=== PATIENT | female | born 1990 | race Caucasian/White ===

== ENCOUNTER 2016-08-21 12:03 | Emergency (ER) | payer OTHER ==
--- NOTE | 2016-08-21 14:38 | ED CLINICAL REPORT ---
Clinical Report - Physicians/Mid Levels [facility] [address] [place] [address] 08/21/2016 12:04 Patient: NITA PRADO Time Seen: 1239. Arrived- By private vehicle. Historian- patient. HISTORY OF PRESENT ILLNESS Chief Complaint: PELVIC PAIN. At its maximum, severity described as severe. When seen in the E.D., severity described as severe. It is described as sharp and cramping. No radiation. It is described as located in the pelvic area. This started today and is still present and worsening. It was abrupt in onset and has been constant but is not gone now. The patient has had nausea. No loss of appetite, vomiting or diarrhea. The patient has an additional complaint of abdominal pain. No recent travel. Similar symptoms previously: (a few times). Recent medical care: Not recently seen/assessed. REVIEW OF SYSTEMS No constipation, black stools, hematemesis, bloody stools or fever. All systems otherwise negative, except as recorded above. PAST HISTORY See nurses notes. Medications: Nitro-Dur Transdermal. Nitrofurantoin Oral 100, 12 hrs. [place] Oral (Tablet 5-325 mg) 1 tablet, as needed. Propranolol HCl Oral. Rizatriptan Benzoate Oral. Allergies: No Known Drug Allergy. SOCIAL HISTORY Never smoker. No alcohol use or drug use. No recent travel. Is a local resident. ADDITIONAL NOTES The nursing notes have been reviewed. PHYSICAL EXAM Vital Signs: 08/21/2016 12:09 BP: 134/89. HR: 94. RR: 15. O2 saturation: 100%. Temp: 98.3 F. Pain level now: 8/10. Oxygen saturation normal. Appearance: Alert. Oriented X3. No acute distress. Eyes: Pupils equal, round and reactive to light. Eyes normal inspection. ENT: Ears normal. Nose normal. Pharynx normal. Neck: Normal inspection. Neck supple. CVS: Normal heart rate and rhythm. Heart sounds normal. Pulses normal. Respiratory: No respiratory distress. Breath sounds normal. Chest nontender. No rales, rhonchi or wheezes. Abdomen: Soft and nontender. Bowel sounds normal. Back: Normal inspection. Skin: Skin warm and dry. Normal skin color. No rash. Normal skin turgor. Extremities: Extremities exhibit normal ROM. No lower extremity edema. LABS, X-RAYS, AND EKG Pelvic Sonogram: An ovarian cyst is present. There is free fluid. symmetrical bilateral ovarian flow. No ectopic . The study was independently viewed by me and interpreted by the radiologist. The study was discussed with the radiologist (via pacs). Laboratory Tests: UA-Culture if indicated: (DANIELE: 08/21/2016 12:15) ( [facility] [place] 12:58[place] Final results Test Result Flag Units (Reference) URINE COLOR YELLOW URINE APPEARANCE CLEAR URINE GLUCOSE NEGATIVE (NEGATIVE) URINE BILIRUBIN NEGATIVE (NEGATIVE) URINE KETONE NEGATIVE (NEGATIVE) URINE SPECIFIC GRAVITY 1.015 (1.010-1.030) URINE PH 7.0 (5.0-8.0) URINE PROTEIN NEGATIVE (NEGATIVE) URINE UROBILINOGEN 0.2 EU/dL (0.2-1.0) URINE NITRITE NEGATIVE (NEGATIVE) URINE BLOOD TRACE-INTACT (NEGATIVE) URINE LEUK ESTERASE NEGATIVE (NEGATIVE) URINE RBC RARE rbc/hpf (0-1) URINE WBC 0-1 wbc/hpf (0-1) URINE EPITHELIAL CELLS 1-3 EPI/hpf (0-5) URINE BACTERIA NONE SEEN (NONE SEEN) URINE COMMENT CULT NOT INDICATED URINE CULTURES ARE SET-UP BASED ON THE FOLLOWING CRITERIA:POSITIVE NITRITEPOSITIVE LEUKOCYTE ESTERASEGREATER THAN 10 WHITE BLOOD CELLSMODERATE (2+) OR GREATER BACTERIA CBC w Diff: (DANIELE: 08/21/2016 12:55) ( [facility] [place] 13:18) Final results Test Result Flag Units (Reference) WHITE BLOOD COUNT 6.8 K/uL (4.5-11.5) RED BLOOD COUNT 4.78 M/uL (4.00-5.20) HEMOGLOBIN 13.6 gm/dL (12.0-16.0) HEMATOCRIT 40.5 % (36.0-46.0) MEAN CELL VOLUME 85 fL (80-100) MEAN CORPUSCULAR HGB 29 pg (26-34) MEAN CORPUSCULAR HGB CONC 34 g/dL (31-37) RED CELL DISTRIBUTION WIDTH 13.9 % (11.6-14.8) PLATELET COUNT 309 K/uL (150-400) NEUTROPHIL % 58.0 % (50-75) LYMPH % 33.4 % (25-40) MONO % 6.8 % (3-14) EOSINOPHIL % 1.2 % (0-4) BASOPHIL % 0.6 % (0-2) CMP: (DANIELE: 08/21/2016 12:55) ( MsgRcvd 08/21/2016 14:24) Final results Test Result Flag Units (Reference) GLUCOSE 98 mg/dL (70-110) BUN 15 mg/dL (7-18) CREATININE 0.7 mg/dL (0.6-1.3) Estimated GFR >60 mL/min Estimated GFR- >60 mL/min Note: Persistent reduction over 3 months in eGFR<60 mL/min/1.73 m2 defines CKD. Patients with eGFR values>=60 mL/min/1.73 m2 may also have CKD if evidence ofpersistent proteinuria. Additional information may be foundat [email or web address]. SODIUM 141 mmol/L (136-145) POTASSIUM 4.1 mmol/L (3.5-5.1) CHLORIDE 107 mmol/L (98-107) CARBON DIOXIDE 26 mmol/L (21-32) CALCIUM 8.7 mg/dL (8.5-10.1) TOTAL PROTEIN 7.0 g/dL (6.4-8.2) ALBUMIN 3.5 g/dL (3.3-5.0) BILIRUBIN, TOTAL 0.3 mg/dL (0.0-1.0) ALKALINE PHOSPHATASE 77 U/L (46-116) AST (SGOT) 27 U/L (15-37) ALT (SGPT) 47 U/L (12-78) LIPASE 91 U/L (73-393) BETA HCG, QUANTITATIVE <1 mIU/mL REFERENCE RANGE:Adult Males: <2 mIU/mLNon- Females: <6 mIU/mL Females:Approximate Approximate hCGGestational Age Range (mIU/mL) 0-1 week 0-501-2 weeks 40-3002-3 weeks 100-72666-8 weeks 500-53462-7 months 5,000-200,0002-3 months 10,000-100,0002nd trimester 3,000-50,0003rd trimester 1,000-50,000 . PROGRESS AND PROCEDURES Course of Care: the patient is a pleasant 25-year-old female with history of endometriosis presenting for evaluation of suprapubic abdominal pain. On examination, patient is nontoxic. No fever. I discussion with patient in regards to acute appendicitis. Patient states that she is scheduled to have her appendix removed the next several weeks. Signs and symptoms at this time are not consistent with acute appendicitis. Pain was sudden in onset and has been constant. Pain has not moved. Patient was evaluated with ultrasound for evaluation of possible ovarian pathology. Patient has a history of endometriosis and would be at increased risk for having A complex ovarian cysts. Patient is agreeable to treatment plan. Pain medication as been ordered. Workup does not show any acute abnormalities. Urinary tract infection the patient reported previously appears to be cleared up with the Macrobid that she is currently on. Patient encouraged to finish her antibiotics. Ultrasound shows ruptured hemorrhagic cyst in the right. No acute abnormalities noted. test negative. No other abnormalities noted. Do not feel patient requires admission to the hospital or further emergency department workup/evaluation. Symptoms are not consistent with acute appendicitis. Sinus symptoms are more consistent withruptured ovarian cyst. Discussed with patient workup, diagnosis, home care, follow-up, and return precautions. All questions have been answered. The patient expressed understanding of these instructions and was agreeable to them. Disposition: Discharged. Condition: good. CLINICAL IMPRESSION 08/21/2016 13:46 BP: 118/60. HR: 88. RR: 14. O2 saturation: 99%. Pain level now: 6/10. 08/21/2016 12:09 BP: 134/89. HR: 94. RR: 15. O2 saturation: 100%. Temp: 98.3 F. Pain level now: 8/10. Acute pelvic pain. Blood pressure normal. Oxygen saturation normal. Single ruptured right ovarian cyst (acute). No torsion of ovary. INSTRUCTIONS (You may continue taking your [place] as prescribed). Warnings: GENERAL WARNINGS: Return or contact your physician immediately if your condition worsens or changes unexpectedly, if not improving as expected, or if other problems arise. SPECIFICALLY, return if you develop pain, fever, vomiting, the inability to keep fluids down, blood in vomitus, blood in diarrhea, fainting or lightheadedness. Your Current Medications: CONTINUE TAKING THE FOLLOWING MEDICATIONS: Nitro-Dur Transdermal. Nitrofurantoin Oral : 100 12 hrs. [place] Oral : Tablet 5-325 mg, 1 tablet, prn. Propranolol HCl Oral. Rizatriptan Benzoate Oral. Prescription Medications: Diclofenac 75 mg tablets: take 1 tablet orally every 12 hours as needed for pain. Dispense twenty (20). No refill. (take with food) Follow-up: Return to the emergency department as needed. Follow up with your doctor in three days. Reason for referral: recheck today's concerns. Screening today revealed the patient's blood pressure to be in the normal range. The patient should follow up with a primary care provider for blood pressure management. Understanding of the discharge instructions verbalized by patient. (Electronically signed by Cristiano Willson Dr. 08/21/2016 17:05)
--- NOTE | 2016-08-21 14:38 | ED CLINICAL REPORT ---
Clinical Report - Physicians/Mid Levels [facility] [address] [place] [address] 08/21/2016 12:04 Patient: NITA PRADO Time Seen: 1239. Arrived- By private vehicle. Historian- patient. HISTORY OF PRESENT ILLNESS Chief Complaint: PELVIC PAIN. At its maximum, severity described as severe. When seen in the E.D., severity described as severe. It is described as sharp and cramping. No radiation. It is described as located in the pelvic area. This started today and is still present and worsening. It was abrupt in onset and has been constant but is not gone now. The patient has had nausea. No loss of appetite, vomiting or diarrhea. The patient has an additional complaint of abdominal pain. No recent travel. Similar symptoms previously: (a few times). Recent medical care: Not recently seen/assessed. REVIEW OF SYSTEMS No constipation, black stools, hematemesis, bloody stools or fever. All systems otherwise negative, except as recorded above. PAST HISTORY See nurses notes. Medications: Nitro-Dur Transdermal. Nitrofurantoin Oral 100, 12 hrs. [place] Oral (Tablet 5-325 mg) 1 tablet, as needed. Propranolol HCl Oral. Rizatriptan Benzoate Oral. Allergies: No Known Drug Allergy. SOCIAL HISTORY Never smoker. No alcohol use or drug use. No recent travel. Is a local resident. ADDITIONAL NOTES The nursing notes have been reviewed. PHYSICAL EXAM Vital Signs: 08/21/2016 12:09 BP: 134/89. HR: 94. RR: 15. O2 saturation: 100%. Temp: 98.3 F. Pain level now: 8/10. Oxygen saturation normal. Appearance: Alert. Oriented X3. No acute distress. Eyes: Pupils equal, round and reactive to light. Eyes normal inspection. ENT: Ears normal. Nose normal. Pharynx normal. Neck: Normal inspection. Neck supple. CVS: Normal heart rate and rhythm. Heart sounds normal. Pulses normal. Respiratory: No respiratory distress. Breath sounds normal. Chest nontender. No rales, rhonchi or wheezes. Abdomen: Soft and nontender. Bowel sounds normal. Back: Normal inspection. Skin: Skin warm and dry. Normal skin color. No rash. Normal skin turgor. Extremities: Extremities exhibit normal ROM. No lower extremity edema. LABS, X-RAYS, AND EKG Pelvic Sonogram: An ovarian cyst is present. There is free fluid. symmetrical bilateral ovarian flow. No ectopic . The study was independently viewed by me and interpreted by the radiologist. The study was discussed with the radiologist (via pacs). Laboratory Tests: UA-Culture if indicated: (DANIELE: 08/21/2016 12:15) ( [facility] [place] 12:58) Final results Test Result Flag Units (Reference) URINE COLOR YELLOW URINE APPEARANCE CLEAR URINE GLUCOSE NEGATIVE (NEGATIVE) URINE BILIRUBIN NEGATIVE (NEGATIVE) URINE KETONE NEGATIVE (NEGATIVE) URINE SPECIFIC GRAVITY 1.015 (1.010-1.030) URINE PH 7.0 (5.0-8.0) URINE PROTEIN NEGATIVE (NEGATIVE) URINE UROBILINOGEN 0.2 EU/dL (0.2-1.0) URINE NITRITE NEGATIVE (NEGATIVE) URINE BLOOD TRACE-INTACT (NEGATIVE) URINE LEUK ESTERASE NEGATIVE (NEGATIVE) URINE RBC RARE rbc/hpf (0-1) URINE WBC 0-1 wbc/hpf (0-1) URINE EPITHELIAL CELLS 1-3 EPI/hpf (0-5) URINE BACTERIA NONE SEEN (NONE SEEN) URINE COMMENT CULT NOT INDICATED URINE CULTURES ARE SET-UP BASED ON THE FOLLOWING CRITERIA:POSITIVE NITRITEPOSITIVE LEUKOCYTE ESTERASEGREATER THAN 10 WHITE BLOOD CELLSMODERATE (2+) OR GREATER BACTERIA CBC w Diff: (DANIELE: 08/21/2016 12:55) ( [facility] [place]:18[place] Final results Test Result Flag Units (Reference) WHITE BLOOD COUNT 6.8 K/uL (4.5-11.5) RED BLOOD COUNT 4.78 M/uL (4.00-5.20) HEMOGLOBIN 13.6 gm/dL (12.0-16.0) HEMATOCRIT 40.5 % (36.0-46.0) MEAN CELL VOLUME 85 fL (80-100) MEAN CORPUSCULAR HGB 29 pg (26-34) MEAN CORPUSCULAR HGB CONC 34 g/dL (31-37) RED CELL DISTRIBUTION WIDTH 13.9 % (11.6-14.8) PLATELET COUNT 309 K/uL (150-400) NEUTROPHIL % 58.0 % (50-75) LYMPH % 33.4 % (25-40) MONO % 6.8 % (3-14) EOSINOPHIL % 1.2 % (0-4) BASOPHIL % 0.6 % (0-2) CMP: (DANIELE: 08/21/2016 12:55) ( MsgRcvd 08/21/2016 14:24) Final results Test Result Flag Units (Reference) GLUCOSE 98 mg/dL (70-110) BUN 15 mg/dL (7-18) CREATININE 0.7 mg/dL (0.6-1.3) Estimated GFR >60 mL/min Estimated GFR- >60 mL/min Note: Persistent reduction over 3 months in eGFR<60 mL/min/1.73 m2 defines CKD. Patients with eGFR values>=60 mL/min/1.73 m2 may also have CKD if evidence ofpersistent proteinuria. Additional information may be foundat [email or web address]. SODIUM 141 mmol/L (136-145) POTASSIUM 4.1 mmol/L (3.5-5.1) CHLORIDE 107 mmol/L (98-107) CARBON DIOXIDE 26 mmol/L (21-32) CALCIUM 8.7 mg/dL (8.5-10.1) TOTAL PROTEIN 7.0 g/dL (6.4-8.2) ALBUMIN 3.5 g/dL (3.3-5.0) BILIRUBIN, TOTAL 0.3 mg/dL (0.0-1.0) ALKALINE PHOSPHATASE 77 U/L (46-116) AST (SGOT) 27 U/L (15-37) ALT (SGPT) 47 U/L (12-78) LIPASE 91 U/L (73-393) BETA HCG, QUANTITATIVE <1 mIU/mL REFERENCE RANGE:Adult Males: <2 mIU/mLNon- Females: <6 mIU/mL Females:Approximate Approximate hCGGestational Age Range (mIU/mL) 0-1 week 0-501-2 weeks 40-3002-3 weeks 100-44111-8 weeks 500-62848-0 months 5,000-200,0002-3 months 10,000-100,0002nd trimester 3,000-50,0003rd trimester 1,000-50,000 . PROGRESS AND PROCEDURES Course of Care: the patient is a pleasant 25-year-old female with history of endometriosis presenting for evaluation of suprapubic abdominal pain. On examination, patient is nontoxic. No fever. I discussion with patient in regards to acute appendicitis. Patient states that she is scheduled to have her appendix removed the next several weeks. Signs and symptoms at this time are not consistent with acute appendicitis. Pain was sudden in onset and has been constant. Pain has not moved. Patient was evaluated with ultrasound for evaluation of possible ovarian pathology. Patient has a history of endometriosis and would be at increased risk for having A complex ovarian cysts. Patient is agreeable to treatment plan. Pain medication as been ordered. Workup does not show any acute abnormalities. Urinary tract infection the patient reported previously appears to be cleared up with the Macrobid that she is currently on. Patient encouraged to finish her antibiotics. Ultrasound shows ruptured hemorrhagic cyst in the right. No acute abnormalities noted. test negative. No other abnormalities noted. Do not feel patient requires admission to the hospital or further emergency department workup/evaluation. Symptoms are not consistent with acute appendicitis. Sinus symptoms are more consistent withruptured ovarian cyst. Discussed with patient workup, diagnosis, home care, follow-up, and return precautions. All questions have been answered. The patient expressed understanding of these instructions and was agreeable to them. Disposition: Discharged. Condition: good. CLINICAL IMPRESSION 08/21/2016 13:46 BP: 118/60. HR: 88. RR: 14. O2 saturation: 99%. Pain level now: 6/10. 08/21/2016 12:09 BP: 134/89. HR: 94. RR: 15. O2 saturation: 100%. Temp: 98.3 F. Pain level now: 8/10. Acute pelvic pain. Blood pressure normal. Oxygen saturation normal. Single ruptured right ovarian cyst (acute). No torsion of ovary. INSTRUCTIONS (You may continue taking your [place] as prescribed). Warnings: GENERAL WARNINGS: Return or contact your physician immediately if your condition worsens or changes unexpectedly, if not improving as expected, or if other problems arise. SPECIFICALLY, return if you develop pain, fever, vomiting, the inability to keep fluids down, blood in vomitus, blood in diarrhea, fainting or lightheadedness. Your Current Medications: CONTINUE TAKING THE FOLLOWING MEDICATIONS: Nitro-Dur Transdermal. Nitrofurantoin Oral : 100 12 hrs. [place] Oral : Tablet 5-325 mg, 1 tablet, prn. Propranolol HCl Oral. Rizatriptan Benzoate Oral. Prescription Medications: Diclofenac 75 mg tablets: take 1 tablet orally every 12 hours as needed for pain. Dispense twenty (20). No refill. (take with food) Follow-up: Return to the emergency department as needed. Follow up with your doctor in three days. Reason for referral: recheck today's concerns. Screening today revealed the patient's blood pressure to be in the normal range. The patient should follow up with a primary care provider for blood pressure management. Understanding of the discharge instructions verbalized by patient. (Electronically signed by Cristiano Willson Dr. 08/21/2016 17:05)
--- NOTE | 2016-08-21 14:38 | ED NURSING NOTES ---
Clinical Report - Nurses [facility] [address] [place] [address] 08/21/2016 12:04 Patient: NITA PRADO TRIAGE Triage time 1210 PM. Acuity: LEVEL 4. Chief Complaint: PELVIC PAIN. Alert. No acute distress. BRITTANI COMA SCORE: Brittani Coma Scale: 15- eyes open spontaneously (4); best verbal response- oriented x 4 (5); best motor response- obeys commands (6). --12:24 Nara Valdovinos R.N. 12:09 08/21/16. BP: 134/89 (large adult cuff) taken on the left arm, via an automated monitor, while lying. HR: 94. RR: 15. O2 saturation: 100%. Temp: 98.3 F (oral). Pain level now: 8/10. --12:24 Nara Valdovinos R.N. Weight: 99.7 kg stated. Height/Length: 62 inches Per Patient. BMI: 40.2. --12:17 Nara Valdovinos R.N. Medications Propranolol HCl Oral. Rizatriptan Benzoate Oral. --12:17 Nara Valdovinos R.N. [place] Oral (Tablet 5-325 mg) 1 tablet, as needed. --12:18 Nara Valdovinos R.N. Nitro-Dur Transdermal. Nitrofurantoin Oral 100, 12 hrs. --12:22 Nara Valdovinos R.N. Medication/allergy information source: the patient. --12:24 Nara Valdovinos R.N. Allergies No Known Drug Allergy. --12:12 Nara Valdovinos R.N. History Arrived by private vehicle. Historian: patient. Primary physician (Dr. Floyd). ( Pt states being treated for a UTI with antibiotics, here for endometriosis/pelvic pain, has taken her narcotics with no relief, has a scheduled surgery on September 14). This started last night. This is a recurrent problem. Started while sleeping. Symptoms are constant and still present (in the middle of the night). She has had abdominal pain and flank pain. No hematuria, abnormal bleeding or fever. Treatment [facility] [employer]: Took ibuprofen. (norco 2 tabs and 400 mg). PAST MEDICAL HX: Endometriosis. Immunizations: up-to-date. Last normal menstrual period- 2 days ago. 0. Para 0. Abortions 0. Sexual history - sexually active. Uses control pills. SOCIAL HX: Occasional alcohol use. Last drink was 1 months ago. No drug use. No infectious disease exposure. SELF HARM ASSESSMENT: A self harm assessment was performed. The patient answered "no" to the question "Do you have thoughts of harming or killing yourself?" and "Have you recently had thoughts about harming or killing others?". FALL RISK ASSESSMENT: Fall risk assessment completed. No fall risk identified. NUTRITIONAL RISK ASSESSMENT: The nutritional risk assessment revealed no deficiencies. FUNCTIONAL ASSESSMENT: Functional assessment: no impairments noted. LEARNING NEEDS ASSESSMENT: The learning needs assessment revealed no barriers. SKIN INTEGRITY ASSESSMENT: Skin integrity risk assessment completed. No skin integrity risk identified. --12:24 Nara Valdovinos R.N. PROBLEMS: Endometriosis. Headache. Chronic Headache. Vomiting. Migraine Headache. LNMP - Last Normal Menstrual Period. --12:18 Nara Valdovinos R.N. ADDITIONAL SURGERIES: Endoscopy. --12:18 Nara Valdovinos R.N. Interventions ID band on patient. --12:24 Nara Valdovinos R.N. PHYSICAL ASSESSMENT Ambulatory to room. GENERAL / NEURO / PSYCH: Alert. Oriented X 4. Appears in no acute distress. Appears in pain. HEENT: Mucous membranes are pink. RESPIRATORY: Respirations not labored. Breath sounds within normal limits. CVS: Capillary refill less than 2 seconds. GI / : Abdomen soft. Abdominal tenderness. Bowel sounds within normal limits. No pain with urination, hematuria noted or vaginal bleeding or discharge. SKIN: Skin is warm and dry. --12:24 Nara Valdovinos R.N. NURSING PROGRESS NOTES The initial plan of care for this patient has been created This plan of care was discussed with the patient. Patient gowned. Warming measures: blanket applied. Reassurance given. Two patient identifiers checked. Call light placed in reach. Side rails up x 1. Bed placed in lowest position. Brakes of bed on. --12:25 Nara Valdovinos R.N. ( Pt does admit having intermittent nausea). --12:28 Nara Valdovinos R.N. Patient ready for evaluation- chart flagged and ED physician notified. --12:28 Nara Valdovinos R.N. 12:54 08/21/2016 Site #1 started via IV in the left hand with an 20g angiocath; one attempt. Blood drawn: rainbow set. Labeled in the presence of the patient and sent to the lab. Saline lock flushed. --12:54 Nara Valdovinos R.N. 12:55 08/21/2016 Started bag #1 1000 mL IV Fluids IV NS (Saline); at 1000 mL/hr over 1 hour(s) via site #1 via dial-a-flow. Allergies verified and confirmed 5 rights. IV patency established. IV site checked: no pain, redness, or swelling. IV flushed thoroughly pre- and post-medication administration. Completed per protocol. --12:55 Nara Valdovinos R.N. 12:55 08/21/2016 Morphine IVP 4 mg given over 2 minute(s) via site #1. Allergies verified, confirmed 5 rights and sedative warning given to the patient and patient's family. IV patency established. IV site checked: no pain, redness, or swelling. IV flushed thoroughly pre- and post-medication administration. IVP given by RN. --12:55 Nara Valdovinos R.N. Pulse oximeter placed on patient. Reassurance given. The patient is calm. GI / : The patient reports nausea. The patient reports abdominal pain. --12:56 Nara Valdovinos R.N. 12:55 08/21/16. HR: 81. RR: 15. O2 saturation: 97%. Pain level now: 01/17. --12:56 Nara Valdovinos R.N. 13:10 08/21/2016 Morphine IVP Response: no adverse reaction symptoms are the same. The patient feels the same. --13:10 Nara Valdovinos R.N. 13:46 08/21/16. BP: 118/60 (large adult cuff) taken on the left arm, via an automated monitor, while lying. HR: 88. RR: 14. O2 saturation: 99% on room air. Pain level now: 11/17. --13:48 Nara Valdovinos R.N. Pulse oximeter placed on patient. Reassurance given. Reassessment after fluids administered and medication administered. She is calm and has had no adverse reaction. Overall patient status is the same- she states feels better. GI / : The patient reports abdominal pain. Denies nausea. Vaginal bleeding. Call light placed in reach. --13:48 Nara Valdovinos R.N. 14:35 08/21/2016 Toradol IVP 30 mg given over 30 second(s) via site #1. Allergies verified and confirmed 5 rights. IV patency established. IV site checked: no pain, redness, or swelling. IV flushed thoroughly pre- and post-medication administration. IVP given by RN. --14:35 Nara Valdovinos R.N. 14:35 08/21/16. BP: 102/81. HR: 74. RR: 15. O2 saturation: 100% on room air. Temp: 98.7 F (oral). Pain level now: 11/17. --14:39 Nara Valdovinos R.N. Pulse oximeter placed on patient. Reassurance given. Reassessment after fluids administered and medication administered. She is calm and has had no adverse reaction. ( sonogram finished, pt tolerated well, toradol given as orderd). GI / : The patient reports abdominal pain. Two patient identifiers checked. Call light placed in reach. --14:39 Nara Valdovinos R.N. 14:46 08/21/2016 IV Fluids IV NS Discontinued: bag #1 completed upon discharge. Total amount infused: 1000 mL. --14:56 Nara Valdovinos R.N. 14:50 08/21/2016 Toradol IVP Response: no adverse reaction. --14:55 Nara Valdovinos R.N. DISPOSITION / DISCHARGE Departure time: 1450 PM. Condition at departure: improved and stable. The goals identified in the patient's plan of care were met. No learning barriers present. Reviewed medication(s) side effects, precautions, dosing and course information. Patient verbalized understanding. Written instructions provided in [place]. Discharge instructions not provided and reviewed with the patient. The patient was discharged by the physician. She was discharged home, accompanied by spouse and unaccompanied at time of discharge. She left the Emergency Department ambulatory and via private vehicle. Patient driving. FALL RISK ASSESSMENT: Fall risk assessment completed. No fall risk identified. --14:55 Nara Valdovinos R.N. 14:45 08/21/16. BP: 102/81 (large adult cuff) taken on the left arm, via an automated monitor, while sitting. HR: 74. RR: 15. O2 saturation: 100% on room air. Temp: 98.2 F (oral). Pain level now: 09/17. --14:55 Nara Valdovinos R.N. 14:45 08/21/2016 Site #1 removed upon discharge. Catheter intact. Manual pressure applied. --14:55 Nara Valdovinos R.N. Locked/Released at 08/21/2016 14:56 by Nara Valdovinos R.N.
--- NOTE | 2016-08-21 14:38 | ED ORDER SUMMARY ---
..... Patient: NITA PRADO OrderSheet [facility] VisitID: [id number] [place] [address] 25y, F Registration Date/Time: 08/21/2016 ORDER SHEET Weight: 99.7 kg (stated) Allergies: No Known Drug Allergy GENERAL ORDERS: US Pelvic Complete w Transvag Urgent (12:39 08/21/2016 Eleuterio Louis) (Ack 12:44 MITALIoerner) (12:54 EHassan R.N.) CBC w Diff Urgent (12:39 08/21/2016 Eleuterio Louis) (Ack 12:44 MITALIoebreananer) (12:54 EHassan R.N.) CMP Urgent (12:39 08/21/2016 Eleuterio Louis) (Ack 12:44 MITALIoerner) (12:54 EHassan R.N.) UA-Culture if indicated Urgent (12:39 08/21/2016 Eleuterio Louis) (Ack 12:40 EHassan R.N.) (Ack 12:44 MITALIoerner) (12:54 EHassan R.N.) Lipase Urgent (12:39 08/21/2016 Eleuterio Louis) (Ack 12:40 EHassan R.N.) (Ack 12:44 MITALIoerner) (12:54 EHassan R.N.) Serum Quantitative Urgent (12:39 08/21/2016 Eleuterio Louis) (Ack 12:40 EHassan R.N.) (Ack 12:44 MITALIoerner) (12:54 EHassan R.N.) Pulse oximeter (12:39 08/21/2016 Eleuterio Louis) (Ack 12:44 MITALIoerner) (12:54 EHassan R.N.) MEDICATION ORDERS: IV FLUIDS: IV Saline Lock (12:39 08/21/2016 Eleuterio Louis) (12:55 EHassan R.N.) IV NS : initial bolus 1000 mL (1000 mL/hr), then none - for X1 (NOW) (12:39 08/21/2016 Eleuterio Louis) (12:55 EHassan R.N.) Morphine IV 4 mg (HIGH ALERT MEDICATION, NOW) (12:39 08/21/2016 Eleuterio Louis) (12:55 Tripp Osorio) Toradol IV 30 mg (NOW) (14:33 08/21/2016 Eleuterio Louis) (14:35 Tripp Osorio) ORDER SHEET NOTES: [Electronically signed by Nara Valdovinos R.N. (14:56 08/21/2016)] [Electronically signed by Cristiano Willson Dr. (17:05 08/21/2016)] [Electronically locked/signed by Nara Valdovinos R.N. (14:56 08/21/2016)]
--- NOTE | 2016-08-21 14:38 | ED ORDER SUMMARY ---
..... Patient: NITA PRADO OrderSheet [facility] VisitID: [id number] [place] [address] 25y, F Registration Date/Time: 08/21/2016 ORDER SHEET Weight: 99.7 kg (stated) Allergies: No Known Drug Allergy GENERAL ORDERS: US Pelvic Complete w Transvag Urgent (12:39 08/21/2016 Eleuterio Louis) (Ack 12:44 MITALIoerner) (12:54 EHassan R.N.) CBC w Diff Urgent (12:39 08/21/2016 Eleuterio Louis) (Ack 12:44 MITALIoebreananer) (12:54 EHassan R.N.) CMP Urgent (12:39 08/21/2016 Eleuterio Louis) (Ack 12:44 MITALIoerner) (12:54 EHassan R.N.) UA-Culture if indicated Urgent (12:39 08/21/2016 Eleuterio Louis) (Ack 12:40 EHassan R.N.) (Ack 12:44 MITALIoerner) (12:54 EHassan R.N.) Lipase Urgent (12:39 08/21/2016 Eleuterio Louis) (Ack 12:40 EHassan R.N.) (Ack 12:44 MITALIoerner) (12:54 EHassan R.N.) Serum Quantitative Urgent (12:39 08/21/2016 Eleuterio Louis) (Ack 12:40 EHassan R.N.) (Ack 12:44 MITALIoerner) (12:54 EHassan R.N.) Pulse oximeter (12:39 08/21/2016 Eleuterio Louis) (Ack 12:44 MITALIoerner) (12:54 EHassan R.N.) MEDICATION ORDERS: IV FLUIDS: IV Saline Lock (12:39 08/21/2016 Eleuterio Louis) (12:55 EHassan R.N.) IV NS : initial bolus 1000 mL (1000 mL/hr), then none - for X1 (NOW) (12:39 08/21/2016 Eleuterio Louis) (12:55 EHassan R.N.) Morphine IV 4 mg (HIGH ALERT MEDICATION, NOW) (12:39 08/21/2016 Eleuterio Louis) (12:55 Tripp Osorio) Toradol IV 30 mg (NOW) (14:33 08/21/2016 Eleuterio Louis) (14:35 Tripp Osorio) ORDER SHEET NOTES: [Electronically signed by Nara Valdovinos R.N. (14:56 08/21/2016)] [Electronically signed by Cristiano Willson Dr. (17:05 08/21/2016)] [Electronically locked/signed by Nara Valdovinos R.N. (14:56 08/21/2016)]
--- NOTE | 2016-08-21 15:07 | DIAGNOSTIC IMAGING REPORT ---
PROCEDURE: US COMPLETE PELVIC W/TRANSVAG INDICATION: PELVIC PAIN TECHNIQUE: Transabdominal and endovaginal castro scale and color Doppler sonographic images of the female pelvis were obtained. COMPARISON: None. FINDINGS: TRANSABDOMINAL SCANS: Anteverted uterus. Normal kidneys. TRANSVAGINAL SCANS: The uterus measures 8.4 x 3.4 x 4.5 cm. Myometrium is unremarkable. Normal endometrium measures 4.9 mm. Left ovary measures 2.7 x 2.8 x 2.2 cm with peripheral follicles. Right ovary measures 3.8 x 1.5 x 2.7 cm with a 1.6 cm hemorrhagic cyst. Normal vascular flow to both ovaries. No adnexal mass or free fluid in the cul-de-sac. IMPRESSION: 1. 1.6 cm right ovarian hemorrhagic cyst 2. Otherwise negative pelvic ultrasound
--- NOTE | 2016-08-21 17:05 | ED MED RECONCILIATION SUMMARY ---
Patient: NITA PRADO Medication Reconciliation Report [facility] VisitID: [id number] [address] [place] [address] 25y, F Registration Date/Time: 08/21/2016 Weight: 99.7 kg Height/Length: 62 in. BMI: 40.2 ALLERGIES: No Known Drug Allergy The patient's Home Medications are listed below: CONTINUE TAKING THE FOLLOWING MEDICATIONS: Nitro-Dur Transdermal Nitrofurantoin Oral 100, 12 hrs [place] Oral (5-325 mg) 1 tablet Propranolol HCl Oral Rizatriptan Benzoate Oral The source(s) of the original Home Medication information: patient The following Medications were given to the patient in the Emergency Department: IV NS IV Fluids bolus 0, then 1000 mL/hr, administered: 08/21/2016 12:55:00 PM Morphine [IVP] IVP 4 mg, administered: 08/21/2016 12:55:00 PM Toradol [IVP] IVP 30 mg, administered: 08/21/2016 2:35:00 PM The following Medications were prescribed to the patient: Diclofenac 75 mg tablets: take 1 tablet orally every 12 hours as needed for pain. Dispense twenty (20). No refill.(take with food) -- Cristiano Willson Dr.
--- NOTE | 2016-08-21 17:05 | ED DISCHARGE INSTRUCTIONS ---
Patient: NITA PRAOD General Instructions [facility] VisitID: [id number] [place] [address] 25y, F Registration Date/Time: 08/21/2016 08/21/2016 13:46 BP: 118/60. HR: 88. RR: 14. O2 saturation: 99%. Pain level now: 11/17. 08/21/2016 12:09 BP: 134/89. HR: 94. RR: 15. O2 saturation: 100%. Temp: 98.3 F. Pain level now: 01/17. Acute pelvic pain. Blood pressure normal. Oxygen saturation normal. Single ruptured right ovarian cyst (acute). No torsion of ovary. INSTRUCTIONS (You may continue taking your Henrietta as prescribed). Warnings: GENERAL WARNINGS: Return or contact your physician immediately if your condition worsens or changes unexpectedly, if not improving as expected, or if other problems arise. SPECIFICALLY, return if you develop pain, fever, vomiting, the inability to keep fluids down, blood in vomitus, blood in diarrhea, fainting or lightheadedness. Your Current Medications: CONTINUE TAKING THE FOLLOWING MEDICATIONS: Nitro-Dur Transdermal. Nitrofurantoin Oral : 100 12 hrs. [place] Oral : Tablet 5-325 mg, 1 tablet, prn. Propranolol HCl Oral. Rizatriptan Benzoate Oral. Prescription Medications: Diclofenac 75 mg tablets: take 1 tablet orally every 12 hours as needed for pain. Dispense twenty (20). No refill. (take with food) Follow-up: Return to the emergency department as needed. Follow up with your doctor in three days. Reason for referral: recheck today's concerns. Screening today revealed the patient's blood pressure to be in the normal range. The patient should follow up with a primary care provider for blood pressure management. Understanding of the discharge instructions verbalized by patient. ADDITIONAL INFORMATION Ovarian Cyst The ovary is a small organ located on each side of the uterus. During each menstrual cycle a tiny egg sac forms in the ovary. If the egg is released but does not occur, this sac usually dissolves. Sometimes, the sac may fill with fluid. It then enlarges into a painful cyst. Usually the cyst will rupture or shrink on its own. In either case, the pain gradually goes away over the next 1-3 days. If the cyst does not shrink or rupture, it may cause continued pain. Home Care: Rest in bed and avoid heavy exertion until you are feeling better. Heat to the lower abdomen usually helps (heating pad or hot packs -- a small towel soaked in hot water). You may use acetaminophen (Tylenol) or ibuprofen (Motrin, Advil) to control pain, unless another pain medicine was prescribed. [NOTE: If you have chronic liver or kidney disease or ever had a stomach ulcer or GI bleeding, talk with your doctor before using these medicines.] Follow Up: See your doctor within the next 2-3 days if your pain doesnt improve. Otherwise, follow up with your doctor after your next period or as directed by our staff. Get Prompt Medical Attention if any of the following occur: Pain worsens or fails to respond to the above measures Fever of 100.4F (38C) or higher, or as directed by your healthcare provider Heavy vaginal bleeding (soaking one pad an hour for three hours) You feel weak or dizzy Fainting Passage of a pink or castro tissue with menstrual bleeding Pelvic Pain, Uncertain Cause Based on your visit today, the exact cause of your pelvic pain is not certain. But your condition does not appear to be serious at this time. However, the signs of a serious problem may take more time to appear. Therefore, it is important for you to watch for any new symptoms or worsening of your condition. Home Care: Rest until you are feeling better. Avoid sexual intercourse until your pain goes away. You may use acetaminophen (Tylenol) or ibuprofen (Motrin, Advil) to control pain, unless another medicine was prescribed. [NOTE: If you have chronic liver or kidney disease or ever had a stomach ulcer or GI bleeding, talk with your doctor before using these medicines.] Follow Up with your doctor as advised. If a culture test was taken, call in two days for the results. If the culture is positive, you will be given more advice at that time. Otherwise, follow-up with your doctor or this facility as instructed. Get Prompt Medical Attention if any of the following occur: Fever of 100.4F (38C) or higher, or as directed by your healthcare provider Vaginal discharge Worsening pain Weakness, dizziness or fainting Unexpected vaginal bleeding or passage of castro or white tissue from the vagina Pain that moves to the right lower abdomen You have been given the following additional information: Ovarian Cyst Pelvic Pain, Unknown Cause (Electronically signed by Cristiano Willson Dr. 08/21/2016 17:05)
--- NOTE | 2016-08-21 17:05 | ED MED RECONCILIATION SUMMARY ---
Patient: NITA PRADO Medication Reconciliation Report [facility] VisitID: [id number] [address] [place] [address] 25y, F Registration Date/Time: 08/21/2016 Weight: 99.7 kg Height/Length: 62 in. BMI: 40.2 ALLERGIES: No Known Drug Allergy The patient's Home Medications are listed below: CONTINUE TAKING THE FOLLOWING MEDICATIONS: Nitro-Dur Transdermal Nitrofurantoin Oral 100, 12 hrs [place] Oral (5-325 mg) 1 tablet Propranolol HCl Oral Rizatriptan Benzoate Oral The source(s) of the original Home Medication information: patient The following Medications were given to the patient in the Emergency Department: IV NS IV Fluids bolus 0, then 1000 mL/hr, administered: 08/21/2016 12:55:00 PM Morphine [IVP] IVP 4 mg, administered: 08/21/2016 12:55:00 PM Toradol [IVP] IVP 30 mg, administered: 08/21/2016 2:35:00 PM The following Medications were prescribed to the patient: Diclofenac 75 mg tablets: take 1 tablet orally every 12 hours as needed for pain. Dispense twenty (20). No refill.(take with food) -- Cristiano Willson Dr.
--- NOTE | 2016-08-21 17:05 | ED MAR SUMMARY ---
..... Medication Administration Record [facility] [address] [place] [address] Patient: NITA PRADO Visit ID: [id number] 25y, F Weight: 99.7 kg Height/Length: 62 in BMI: 40.2 ALLERGIES: No Known Drug Allergy Start 12:55 08/21/2016 Nara Valdovinos R.N., Stop 14:46 08/21/2016 Nara Valdovinos R.N. Medication Administered: IV NS (SALINE), Dose: IV Fluids over 1 hour(s), Rate: 1000 mL/hr, Dispensed: 1000 mL bag, Site: #1 left hand. Medication Ordered: IV NS : initial bolus 1000 mL (1000 mL/hr), then none - for X1 (NOW). Given 12:55 08/21/2016 Nara Valdovinos R.N. Medication Administered: MORPHINE [IVP], Dose: 4 mg IVP over 2 minute(s), Site: #1 left hand. Medication Ordered: Morphine IV 4 mg (HIGH ALERT MEDICATION, NOW). Given 14:35 08/21/2016 Nara Valdovinos R.N. Medication Administered: TORADOL [IVP], Dose: 30 mg IVP over 30 second(s), Site: #1 left hand. Medication Ordered: Toradol IV 30 mg (NOW).
--- NOTE | 2016-08-21 17:05 | ED MAR SUMMARY ---
..... Medication Administration Record [facility] [address] [place] [address] Patient: NITA PRADO Visit ID: [id number] 25y, F Weight: 99.7 kg Height/Length: 62 in BMI: 40.2 ALLERGIES: No Known Drug Allergy Start 12:55 08/21/2016 Nara Valdovinos R.N., Stop 14:46 08/21/2016 Nara Valdovinos R.N. Medication Administered: IV NS (SALINE), Dose: IV Fluids over 1 hour(s), Rate: 1000 mL/hr, Dispensed: 1000 mL bag, Site: #1 left hand. Medication Ordered: IV NS : initial bolus 1000 mL (1000 mL/hr), then none - for X1 (NOW). Given 12:55 08/21/2016 Nara Valdovinos R.N. Medication Administered: MORPHINE [IVP], Dose: 4 mg IVP over 2 minute(s), Site: #1 left hand. Medication Ordered: Morphine IV 4 mg (HIGH ALERT MEDICATION, NOW). Given 14:35 08/21/2016 Nara Valdovinos R.N. Medication Administered: TORADOL [IVP], Dose: 30 mg IVP over 30 second(s), Site: #1 left hand. Medication Ordered: Toradol IV 30 mg (NOW).
== END 2016-08-21 14:50 | disposition home or self-care (01) ==
LOC: ED SRH 12:03
DX: N83.201 Unspecified ovarian cyst, right side (principal); R10.2 Pelvic and perineal pain; Z79.891 Long term (current) use of opiate analgesic; Z79.899 Other long term (current) drug therapy
CPT/HCPCS: 90004; 90100; 90197; 92235; 95059